=== PATIENT | female | born 1990 | race African-American/Black ===

== ENCOUNTER 2024-07-27 17:42 | Inpatient (IN) | payer SELFPAY ==
[~2024-07-27] VITALS: Ht 167.6 cm; Wt 90.7 kg
[2024-07-27 19:11] VITALS: PULSE 85; RESP 22; O2SAT 95
[2024-07-27] MEDS: IPRATROPIUM/ALBUTEROL 0.5-3(2.5)MG/3ML NEB HHN STA (19:11)
[2024-07-27] MEDS ORDERED: IPRATROPIUM/ALBUTEROL 0.5-3(2.5)MG/3ML NEB HHN ONE (20:15)
[2024-07-27 20:17] VITALS: PULSE 87; RESP 22
[2024-07-27] MEDS: IPRATROPIUM/ALBUTEROL 0.5-3(2.5)MG/3ML NEB HHN ONE (20:17)
[2024-07-27] MEDS: IPRATROPIUM/ALBUTEROL 0.5-3(2.5)MG/3ML NEB HHN NR (20:17)
[2024-07-27] MEDS: DEXAMETHASONE 2MG TABLET PO ONE (23:07)
[2024-07-27] MEDS: ACETAMINOPHEN 500MG TABLET PO ONE (23:07)
[2024-07-27] MEDS: METHOCARBAMOL 500MG TABLET PO ONE (23:10)
[2024-07-28] VITALS (8 sets, daily range): BP systolic 106–115; BP diastolic 43–70; PULSE 79–98; RESP 18–26; TEMP 36.6696–36.89184; O2SAT 94–100
[2024-07-28 00:48] LABS: HEMATOCRIT 37.8 % (36.0-48.0); HEMOGLOBIN 12.7 g/dL (12.0-16.0); MEAN CORPUSCULAR HEMOGLOBIN 29.9 pg (28.0-32.0); MEAN CORPUSCULAR HGB CONC 33.7 g/dL (31.0-37.0); MEAN CORPUSCULAR VOLUME 88.8 fL (81.0-99.0); PLATELET 185 x1000/uL (130-400); RED BLOOD CELL COUNT 4.25 mill/uL (4.2-5.4); WHITE BLOOD COUNT 9.7 x1000/uL (4.5-11.0)
[2024-07-28 00:52] LABS: CHLORIDE 106 mEq/L (98-107); POTASSIUM 3.3 mEq/L (3.5-5.1); SODIUM 135 mEq/L (136-145)
[2024-07-28 00:53] LABS: CARBON DIOXIDE 18 mEq/L (21-32)
[2024-07-28 00:54] LABS: CALCIUM 9.1 mg/dL (8.7-10.4)
[2024-07-28 00:58] LABS: CREATININE 0.8 mg/dL (0.6-1.0)
[2024-07-28 00:59] LABS: GLUCOSE 138 mg/dL (70-105); UREA NITROGEN BLOOD 7 mg/dL (9-23)
[2024-07-28 02:46] LABS: HCG SCREEN NEGATIVE
[2024-07-28] MEDS ORDERED: ONDANSETRON HCL 4MG/2ML INJ IV PRN (03:30)
[2024-07-28] MEDS: POTASSIUM CHLORIDE 20MEQ/PACKET PO NR (03:52)
[2024-07-28] MEDS: PREDNISONE 20MG TABLET PO NR (03:52)
[2024-07-28 05:39] LABS: CREATINE KINASE MB FRACTION 1.2 ng/mL (0.5-3.6)
[2024-07-28 05:40] LABS: CREATINE KINASE 142 IU/L (34-145)
[2024-07-28 05:41] LABS: TROPONIN I HIGH SENSITIVITY < 4 ng/L (3.0-34)
[2024-07-28] MEDS: AZITHROMYCIN 500MG/250ML 500 ML IV SCH (06:16)
[2024-07-28] MEDS: PREDNISONE 20MG TABLET PO SCH (09:11)
[2024-07-28] MEDS: BUDESONIDE 0.5MG/2ML NEB HHN SCH (10:17)
[2024-07-28] MEDS: IPRATROPIUM/ALBUTEROL 0.5-3(2.5)MG/3ML NEB HHN SCH (10:19)
[2024-07-28] MEDS: ACETAMINOPHEN 325MG TABLET PO PRN (12:42)
[2024-07-28] MEDS: GUAIFENESIN 200MG/10ML SUGAR FREE UDC PO PRN (12:42)
[2024-07-28] MEDS ORDERED: P20 MT (13:59)
[2024-07-28] MEDS ORDERED: BUDE6.9H INH (13:59)
[2024-07-28] MEDS ORDERED: ALBU18HF2 IH (13:59)
[2024-07-28] MEDS ORDERED: PROM25SU57 RC (17:11)
[2024-07-28] MEDS ORDERED: FAMOTIDINE 20MG TABLET PO SCH (21:00)
== END 2024-07-28 18:17 | disposition home or self-care (01) | DRG 141 ==
LOC: ER 17:42 → 6WST 23:44 → EDBEDREQTM 23:53 → EDBEDREQ 23:53 → EDBEDREQSVC 23:53
PROVIDERS: ADMIT Internal Medicine; ATTEND Internal Medicine
DX: J45.901 Unspecified asthma with (acute) exacerbation (principal); E66.01 Morbid (severe) obesity due to excess calories; E87.6 Hypokalemia; Z20.822 Contact with and (suspected) exposure to COVID-19; F12.90 Cannabis use, unspecified, uncomplicated; Z68.32 Body mass index [BMI] 32.0-32.9, adult; Z79.51 Long term (current) use of inhaled steroids; Z59.01 Sheltered homelessness
CPT/HCPCS: 36415; 71045; 80048; 82550; 82553; 83605; 84145; 84484; 84703; 85027; 85379; 87426; 87804; 94070; 94640; 99285; A4663; J0456; J7512; J7626; J8540